=== PATIENT | female | born 2000 | race Caucasian/White ===

== ENCOUNTER 2021-12-13 13:45 | Emergency (ER) | payer MEDICAID, OTHER ==
[2021-12-13] MEDS ORDERED: methylPREDNISolone Sodium Succinate 40 MG/1 ML SDV IM ONE (16:19)
[2021-12-13] MEDS ORDERED: Famotidine 20 MG Tab PO ONE (16:20)
[2021-12-13] MEDS ORDERED: diphenhydrAMINE 50 MG Cap PO ONE (16:21)
== END 2021-12-13 16:51 | disposition home or self-care (01) ==
LOC: JD.ED 13:45
DX: T78.40XA Allergy, unspecified, initial encounter (principal); Z79.899 Other long term (current) drug therapy
CPT/HCPCS: 96372; 99283; A9270; J2920; Q0163